=== PATIENT | male | born 1945 | race African-American/Black ===

== ENCOUNTER 2018-01-21 08:47 | Inpatient (IN) ==
[2018-01-21] MEDS ORDERED: SODIUM CHLORIDE 0.9% 500 ML IV STA (09:30)
[2018-01-21 09:43] LABS: ABG Base Excess -1.2 MMOL/L (-2.5-2.5); ABG HCO3 23.4 MMOL/L (20-26); ABG Oxygen Saturation 96.6 % (95-100); ABG PCO2 38.5 MM HG (35-48); ABG PH 7.392 (7.35-7.45); ABG PO2 86.7 MM HG (80-95); ABG TCO2 20.3 MMOL/L (23-27)
[2018-01-21 10:34] LABS: Basophils % 0.5 % (0.0-0.8); Eosinophils # 0.2 10*3/uL (0.0-0.87); Eosinophils % 3.4 % (0.00-10.9); Hematocrit 42.3 VOL% (42.0-52.0); Hemoglobin 13.8 GM/DL (14.0-18.0); Immature Granulocytes % 0.6 %; Immature Granulocytes Absolute 0.04 #; Lymphocytes # 1.9 10*3/uL (1.4-4.0); Lymphocytes % 28.4 % (21.2-54.2); Mean Corpuscular HGB Conc 32.6 GM/DL (32-36); Mean Corpuscular Hemoglobin 32 PG (27-34); Mean Corpuscular Volume 97.5 FL (87-102); Mean Platelet Volume 10.7 FL (9.6-12.0); Monocytes # 0.6 10*3/uL (0.11-0.8); Monocytes % 8.8 % (1.7-12.7); Neutrophils # 3.8 10*3/uL (1.4-7.4); Neutrophils % 58.3 % (38.7-73.9); Platelet Count 150 T/CUMM (130-400); Red Blood Count 4.34 MC/CUMM (3.8-5.5); White Blood Count 6.6 T/CUMM (4-12)
[2018-01-21 10:48] LABS: INR 1.1; PT Patient Result 11.3 SECS
[2018-01-21 10:55] LABS: Ammonia 35 UMOL/L (11-32)
[2018-01-21 10:59] LABS: Alanine Aminotransferase 66 U/L (16-61); Albumin 3.6 G/DL (3.4-5.0); Alkaline Phosphatase 87 U/L (45-117); Aspartate Amino Transferase 21 U/L (0-37); Bilirubin,Total < 0.39 MG/DL (0.2-1.0); Blood Urea Nitrogen 10 MG/DL (7-18); Calcium 8.4 MG/DL (8.5-10.1); Glucose 137 MG/DL (74-106); Potassium 3.8 MMOL/L (3.5-5.1); Sodium 143 MMOL/L (136-145); Total Protein 7.4 G/DL (6.4-8.3)
[2018-01-21 11:15] LABS: Apearance,Urine CLEAR (Clear); Bilirubin,Urine Negative (Negative); Blood, Urine Negative (Negative); Glucose,Urine (UA) Negative (Negative); Ketones,Urine Negative (Negative); Nitrite,Urine Negative (Negative); Protein,Urine Negative; RBC,Urine <1 /HPF (0-4); Urine Color Colorless (Yellow); Urine Specific Gravity 1.002 (1.001-1.035); Urine Urobilinogen < 2.0 EU/DL (0.2-1.0); WBC,Urine <1 /HPF (0-6)
[2018-01-21 11:22] LABS: Barbiturates Screen,Urine Negative (Negative); Benzodiazepines Screen,Urine Negative (Negative); Cannabinoid Screen,Urine Negative (Negative); Opiate Screen,Urine Negative (Negative); Phencyclidine Screen,Urine Negative (Negative)
[2018-01-21] MEDS ORDERED: LORazepam 2 MG/1 ML VIAL IV PRN ×2 (12:28→12:29)
[2018-01-21] MEDS ORDERED: hydrALAZINE 20 MG/1 ML VIAL IV PRN (12:36)
[2018-01-21] MEDS ORDERED: GLUCAGON 1 MG VIAL IM PRN ×2 (12:40)
[2018-01-21] MEDS ORDERED: DEXTROSE 50% 25 GM/50 ML VIAL IV PRN ×2 (12:40)
[2018-01-21] MEDS ORDERED: LACTULOSE 20 GM/30 ML UDCUP PO ONE (13:00)
[2018-01-21] MEDS: SODIUM CHLORIDE 0.45% 1,000 ML IV SCH (14:47)
[2018-01-21] MEDS: sitaGLIPtin 100 MG TABLET PO SCH (14:49)
[2018-01-21] MEDS: ASPIRIN EC 81 MG TABLET PO SCH (14:49)
[2018-01-21] MEDS: amLODIPine 10 MG TABLET PO SCH (14:49)
[2018-01-21] MEDS: BENZTROPINE 2 MG/2 ML AMP IV SCH ×2 (14:50→22:41)
[2018-01-21] MEDS: INSULIN REGULAR 100 UNIT/ML SUBCUT SCH ×2 (16:44→21:16)
[2018-01-21] MEDS: HEPARIN 5,000 UNIT/1 ML VIAL SUBCUT SCH (17:50)
[2018-01-21] MEDS: LOVASTATIN 20 MG TABLET PO SCH (17:50)
[2018-01-21] MEDS ORDERED: NON-FORMULARY MEDICATION (Lovastatin [Lovastatin] 80 MG) PO SCH (21:00)
[2018-01-21] MEDS ORDERED: TOPIRAMATE 100 MG TABLET PO SCH (21:00)
[2018-01-21] MEDS ORDERED: OXcarbazepine 300 MG TABLET PO SCH (21:00)
[2018-01-21] MEDS ORDERED: MONTELUKAST 10 MG TABLET PO SCH (21:00)
[2018-01-21] MEDS ORDERED: FINASTERIDE 5 MG TABLET PO SCH (21:00)
[2018-01-21] MEDS: FINASTERIDE 5 MG TABLET PO SCH (21:15)
[2018-01-21] MEDS: MONTELUKAST 10 MG TABLET PO SCH (21:15)
[2018-01-22] MEDS: HEPARIN 5,000 UNIT/1 ML VIAL SUBCUT SCH ×3 (01:09→17:04)
[2018-01-22 05:32] LABS: Basophils % 0.5 % (0.0-0.8); Eosinophils # 0.2 10*3/uL (0.0-0.87); Eosinophils % 3.9 % (0.00-10.9); Hematocrit 39.6 VOL% (42.0-52.0); Immature Granulocytes % 0.3 %; Immature Granulocytes Absolute 0.02 #; Lymphocytes # 2.4 10*3/uL (1.4-4.0); Lymphocytes % 40.6 % (21.2-54.2); Mean Corpuscular HGB Conc 32.8 GM/DL (32-36); Mean Corpuscular Hemoglobin 31 PG (27-34); Mean Corpuscular Volume 95.4 FL (87-102); Monocytes # 0.7 10*3/uL (0.11-0.8); Monocytes % 11.2 % (1.7-12.7); Neutrophils # 2.6 10*3/uL (1.4-7.4); Neutrophils % 43.5 % (38.7-73.9); Platelet Count 163 T/CUMM (130-400); Red Blood Count 4.15 MC/CUMM (3.8-5.5); Red Cell Distribution Width 14.8 % (9.3-17.3); White Blood Count 5.9 T/CUMM (4-12)
[2018-01-22 05:45] LABS: Albumin 3.2 G/DL (3.4-5.0); Bilirubin,Total 0.6 MG/DL (0.2-1.0); Calcium 8.1 MG/DL (8.5-10.1); Osmolality,Calculated 286.8 MOS/KG (273-304); Potassium 3.6 MMOL/L (3.5-5.1); Total Protein 6.6 G/DL (6.4-8.3)
[2018-01-22] MEDS: LEVOTHYROXINE 25 MCG TABLET PO SCH (05:56)
[2018-01-22] MEDS ORDERED: LEVOTHYROXINE 25 MCG TABLET PO SCH (07:00)
[2018-01-22] MEDS: INSULIN REGULAR 100 UNIT/ML SUBCUT SCH ×4 (07:26→21:37)
[2018-01-22] MEDS ORDERED: [UNRECOGNIZED DRUG - OTHER] PO SCH (09:00)
[2018-01-22] MEDS ORDERED: CALCIUM CARBONATE PO SCH (09:00)
[2018-01-22] MEDS ORDERED: VITAMIN D3 PO SCH (09:00)
[2018-01-22] MEDS ORDERED: amLODIPine 10 MG TABLET PO SCH (09:00)
[2018-01-22] MEDS ORDERED: CETIRIZINE 10 MG TABLET PO SCH (09:00)
[2018-01-22] MEDS ORDERED: sitaGLIPtin 100 MG TABLET PO SCH (09:00)
[2018-01-22] MEDS ORDERED: DOCUSATE SODIUM 100 MG CAPSULE PO SCH (09:00)
[2018-01-22] MEDS ORDERED: [UNRECOGNIZED DRUG - OTHER] PO SCH (09:00)
[2018-01-22] MEDS ORDERED: B COMPLEX WITH VITAMIN C PO SCH (09:00)
[2018-01-22] MEDS ORDERED: ASPIRIN EC 81 MG TABLET PO SCH (09:00)
[2018-01-22] MEDS: sitaGLIPtin 100 MG TABLET PO SCH (09:07)
[2018-01-22] MEDS: MULTIVITAMIN (CENTRUM) TABLET PO SCH (09:07)
[2018-01-22] MEDS: ASPIRIN EC 81 MG TABLET PO SCH (09:08)
[2018-01-22] MEDS: amLODIPine 10 MG TABLET PO SCH (09:08)
[2018-01-22] MEDS: BENZTROPINE 2 MG/2 ML AMP IV SCH (09:09)
[2018-01-22] MEDS: LACTULOSE 20 GM/30 ML UDCUP PO SCH ×3 (09:15→21:37)
[2018-01-22] MEDS: SODIUM CHLORIDE 0.45% 1,000 ML IV SCH (09:22)
[2018-01-22] MEDS: LOVASTATIN 20 MG TABLET PO SCH (17:03)
[2018-01-22] MEDS: glipiZIDE 5 MG TABLET PO SCH (17:03)
[2018-01-22] MEDS: levETIRAcetam 500 MG TABLET PO SCH (21:36)
[2018-01-22] MEDS: MONTELUKAST 10 MG TABLET PO SCH (21:37)
[2018-01-22] MEDS: OXcarbazepine 300 MG TABLET PO SCH (21:37)
[2018-01-22] MEDS: FINASTERIDE 5 MG TABLET PO SCH (21:37)
[2018-01-23] MEDS: HEPARIN 5,000 UNIT/1 ML VIAL SUBCUT SCH ×2 (00:44→09:57)
[2018-01-23] MEDS: LACTULOSE 20 GM/30 ML UDCUP PO SCH ×2 (02:39→09:55)
[2018-01-23] MEDS: SODIUM CHLORIDE 0.45% 1,000 ML IV SCH (02:39)
[2018-01-23 04:50] LABS: Basophils % 0.4 % (0.0-0.8); Eosinophils # 0.3 10*3/uL (0.0-0.87); Eosinophils % 3.4 % (0.00-10.9); Hemoglobin 14.1 GM/DL (14.0-18.0); Immature Granulocytes % 0.5 %; Immature Granulocytes Absolute 0.04 #; Lymphocytes # 2.5 10*3/uL (1.4-4.0); Lymphocytes % 34.6 % (21.2-54.2); Mean Corpuscular HGB Conc 33.6 GM/DL (32-36); Mean Corpuscular Hemoglobin 31 PG (27-34); Mean Corpuscular Volume 92.3 FL (87-102); Monocytes # 0.8 10*3/uL (0.11-0.8); Monocytes % 11.1 % (1.7-12.7); Neutrophils # 3.6 10*3/uL (1.4-7.4); Platelet Count 183 T/CUMM (130-400); Red Blood Count 4.55 MC/CUMM (3.8-5.5); Red Cell Distribution Width 14.6 % (9.3-17.3); White Blood Count 7.3 T/CUMM (4-12)
[2018-01-23 05:22] LABS: Albumin 3.3 G/DL (3.4-5.0); Bilirubin,Total 0.8 MG/DL (0.2-1.0); Calcium 8.1 MG/DL (8.5-10.1); Osmolality,Calculated 282.1 MOS/KG (273-304); Potassium 3.6 MMOL/L (3.5-5.1); Total Protein 7.2 G/DL (6.4-8.3)
[2018-01-23] MEDS: LEVOTHYROXINE 25 MCG TABLET PO SCH (06:15)
[2018-01-23] MEDS: INSULIN REGULAR 100 UNIT/ML SUBCUT SCH ×2 (08:48→11:58)
[2018-01-23] MEDS: amLODIPine 10 MG TABLET PO SCH (09:42)
[2018-01-23] MEDS: ASPIRIN EC 81 MG TABLET PO SCH (09:42)
[2018-01-23] MEDS: glipiZIDE 5 MG TABLET PO SCH (09:42)
[2018-01-23] MEDS: sitaGLIPtin 100 MG TABLET PO SCH (09:42)
[2018-01-23] MEDS: OXcarbazepine 300 MG TABLET PO SCH (09:42)
[2018-01-23] MEDS: levETIRAcetam 500 MG TABLET PO SCH (09:42)
[2018-01-23] MEDS: MULTIVITAMIN (CENTRUM) TABLET PO SCH (09:42)
[2018-01-23 11:42] VITALS: BP 116/78
== END 2018-01-23 12:35 | DRG 92 ==
LOC: EDUNIT# → EDBD → N.ED 08:47 → N.EDINP 12:08 → N.2E 12:39
PROVIDERS: ADMIT Internal Medicine; ATTEND Internal Medicine

== ENCOUNTER 2018-02-03 12:25 | Observation (INO) ==
[2018-02-03 13:31] LABS: Basophils % 0.5 % (0.0-0.8); Eosinophils # 0.1 10*3/uL (0.0-0.87); Eosinophils % 2.1 % (0.00-10.9); Hematocrit 41.5 VOL% (42.0-52.0); Hemoglobin 13.3 GM/DL (14.0-18.0); Immature Granulocytes % 0.2 %; Immature Granulocytes Absolute 0.01 #; Lymphocytes # 1.7 10*3/uL (1.4-4.0); Mean Corpuscular Hemoglobin 31 PG (27-34); Mean Corpuscular Volume 95.8 FL (87-102); Mean Platelet Volume 10.4 FL (9.6-12.0); Monocytes # 0.6 10*3/uL (0.11-0.8); Monocytes % 10.1 % (1.7-12.7); Neutrophils # 3.3 10*3/uL (1.4-7.4); Neutrophils % 58.1 % (38.7-73.9); Platelet Count 177 T/CUMM (130-400); Red Blood Count 4.33 MC/CUMM (3.8-5.5); Red Cell Distribution Width 14.9 % (9.3-17.3); White Blood Count 5.8 T/CUMM (4-12)
[2018-02-03 13:42] LABS: INR 1.1; PT Patient Result 11.6 SECS; Partial Thromboplastin Time 23.6 SECS (0-40)
[2018-02-03 13:57] LABS: Albumin 3.7 G/DL (3.4-5.0); Bilirubin,Total 0.4 MG/DL (0.2-1.0); Calcium 8.4 MG/DL (8.5-10.1); Osmolality,Calculated 282.3 MOS/KG (273-304)
[2018-02-03 15:01] LABS: Apearance,Urine CLEAR (Clear); Bilirubin,Urine Negative (Negative); Blood, Urine Negative (Negative); Glucose,Urine (UA) Negative (Negative); Ketones,Urine Negative (Negative); Mucus,Urine Occasional /LPF (Occasional); Nitrite,Urine Negative (Negative); Protein,Urine 30 MG/DL; RBC,Urine <1 /HPF (0-4); Squamous Epithelial Cell,Urine Occasional /HPF (0-10); Urine Color Yellow (Yellow); Urine Specific Gravity 1.023 (1.001-1.035); WBC,Urine 1 /HPF (0-6)
[2018-02-03] MEDS ORDERED: ONDANSETRON 4 MG/2 ML VIAL IV PRN (15:11)
[2018-02-03] MEDS ORDERED: ACETAMINOPHEN 325 MG TABLET PO PRN (15:11)
[2018-02-03] MEDS ORDERED: ALUMINUM/MAGNES/SIMETH MAX STR 30 ML UDCUP PO PRN (15:14)
[2018-02-03] MEDS ORDERED: DEXTROSE 50% 25 GM/50 ML VIAL IV PRN (15:16)
[2018-02-03] MEDS ORDERED: GLUCAGON 1 MG VIAL IM PRN (15:16)
[2018-02-03] MEDS ORDERED: MAGNESIUM HYDROXIDE SUSP 30 ML UDCUP PO PRN (15:26)
[2018-02-03] MEDS ORDERED: HALOPERIDOL 5 MG/ML AMP IM PRN (15:27)
[2018-02-03] MEDS: INSULIN LISPRO 100 UNIT/ML SUBCUT SCH ×2 (18:07→20:21)
[2018-02-03] MEDS: glipiZIDE 5 MG TABLET PO SCH (18:07)
[2018-02-03] MEDS ORDERED: INFLUENZA VIRUS VACCINE 0.5 ML SYRINGE IM ONE (18:45)
[2018-02-03] MEDS: QUEtiapine 100 MG TABLET PO SCH (20:11)
[2018-02-03] MEDS: OXcarbazepine 300 MG TABLET PO SCH (20:11)
[2018-02-03] MEDS: levETIRAcetam 500 MG TABLET PO SCH (20:11)
[2018-02-03] MEDS: MEMANTINE 10 MG TABLET PO SCH (20:11)
[2018-02-03] MEDS: LACTULOSE 20 GM/30 ML UDCUP PO SCH (20:16)
[2018-02-03] MEDS ORDERED: FINASTERIDE 5 MG TABLET PO SCH (21:00)
[2018-02-03] MEDS ORDERED: LOVASTATIN 20 MG TABLET PO SCH (21:00)
[2018-02-03] MEDS ORDERED: DONEPEZIL 10 MG TABLET PO SCH (21:00)
[2018-02-03] MEDS ORDERED: ENOXAPARIN 40 MG/0.4 ML SYRINGE SUBCUT SCH (21:00)
[2018-02-03] MEDS ORDERED: MONTELUKAST 10 MG TABLET PO SCH (21:00)
[2018-02-04] MEDS ORDERED: LEVOTHYROXINE 25 MCG TABLET PO SCH (07:00)
[2018-02-04 08:09] LABS: Basophils % 0.7 % (0.0-0.8); Eosinophils # 0.1 10*3/uL (0.0-0.87); Hematocrit 43.7 VOL% (42.0-52.0); Immature Granulocytes % 0.2 %; Immature Granulocytes Absolute 0.01 #; Lymphocytes # 2.4 10*3/uL (1.4-4.0); Mean Corpuscular Hemoglobin 31 PG (27-34); Mean Corpuscular Volume 97.3 FL (87-102); Mean Platelet Volume 10.4 FL (9.6-12.0); Monocytes # 0.6 10*3/uL (0.11-0.8); Monocytes % 9.1 % (1.7-12.7); Neutrophils # 2.9 10*3/uL (1.4-7.4); Platelet Count 188 T/CUMM (130-400); Red Blood Count 4.49 MC/CUMM (3.8-5.5); Red Cell Distribution Width 15.1 % (9.3-17.3); White Blood Count 6.1 T/CUMM (4-12)
[2018-02-04 08:30] LABS: Albumin 3.7 G/DL (3.4-5.0); Bilirubin,Total 0.6 MG/DL (0.2-1.0); Calcium 8.9 MG/DL (8.5-10.1); Osmolality,Calculated 283.1 MOS/KG (273-304); Potassium 4.1 MMOL/L (3.5-5.1); Total Protein 7.3 G/DL (6.4-8.3)
[2018-02-04] MEDS: LACTULOSE 20 GM/30 ML UDCUP PO SCH (08:39)
[2018-02-04] MEDS: MEMANTINE 10 MG TABLET PO SCH (08:40)
[2018-02-04] MEDS: QUEtiapine 100 MG TABLET PO SCH (08:40)
[2018-02-04] MEDS: levETIRAcetam 500 MG TABLET PO SCH (08:40)
[2018-02-04] MEDS: OXcarbazepine 300 MG TABLET PO SCH (08:40)
[2018-02-04] MEDS: glipiZIDE 5 MG TABLET PO SCH (08:40)
[2018-02-04] MEDS ORDERED: CALCIUM (CARBONATE)/VITAMIN D 500 MG-200 UNIT TABLET PO SCH (09:00)
[2018-02-04] MEDS ORDERED: DOCUSATE SODIUM 100 MG CAPSULE PO SCH (09:00)
[2018-02-04] MEDS ORDERED: ASPIRIN EC 81 MG TABLET PO SCH (09:00)
[2018-02-04] MEDS ORDERED: CETIRIZINE 10 MG TABLET PO SCH (09:00)
[2018-02-04] MEDS ORDERED: PANTOPRAZOLE 40 MG TABLET PO SCH (09:00)
[2018-02-04] MEDS ORDERED: MULTIVITAMIN (BEROCCA) TABLET PO SCH (09:00)
[2018-02-04] MEDS ORDERED: amLODIPine 10 MG TABLET PO SCH (09:00)
[2018-02-04] MEDS ORDERED: MULTIVITAMIN (CENTRUM) TABLET PO SCH (09:00)
[2018-02-04] MEDS: INSULIN LISPRO 100 UNIT/ML SUBCUT SCH ×2 (10:23→12:50)
[2018-02-04 12:54] VITALS: BP 120/63
== END 2018-02-04 14:43 ==
LOC: EDUNIT# → N.ED 12:25 → N.EDINP 12:25 → SUATTDRO 15:11 → N.4E 16:24
PROVIDERS: ADMIT Internal Medicine; ATTEND Internal Medicine

== ENCOUNTER 2018-05-25 10:49 | Inpatient (IN) ==
[2018-05-25 12:44] LABS: Basophils % 0.5 % (0.0-0.8); Eosinophils # 0.1 10*3/uL (0.0-0.87); Eosinophils % 1.4 % (0.00-10.9); Hemoglobin 15.2 GM/DL (14.0-18.0); Immature Granulocytes % 0.3 %; Immature Granulocytes Absolute 0.02 #; Lymphocytes # 1.9 10*3/uL (1.4-4.0); Lymphocytes % 29.1 % (21.2-54.2); Mean Corpuscular Hemoglobin 31 PG (27-34); Mean Corpuscular Volume 94.7 FL (87-102); Mean Platelet Volume 10.6 FL (9.6-12.0); Monocytes # 0.7 10*3/uL (0.11-0.8); Monocytes % 10.2 % (1.7-12.7); Neutrophils # 3.8 10*3/uL (1.4-7.4); Neutrophils % 58.5 % (38.7-73.9); Platelet Count 173 T/CUMM (130-400); Red Blood Count 4.86 MC/CUMM (3.8-5.5); Red Cell Distribution Width 13.9 % (9.3-17.3); White Blood Count 6.5 T/CUMM (4-12)
[2018-05-25 13:03] LABS: Albumin 3.9 G/DL (3.4-5.0); Bilirubin,Total 0.4 MG/DL (0.2-1.0); Calcium 8.7 MG/DL (8.5-10.1); Osmolality,Calculated 277.7 MOS/KG (273-304); Potassium 3.8 MMOL/L (3.5-5.1); Total Protein 8.1 G/DL (6.4-8.3)
[2018-05-25 13:28] LABS: Apearance,Urine Slightly Hazy (Clear); Bilirubin,Urine Negative (Negative); Blood, Urine Negative (Negative); Glucose,Urine (UA) Negative (Negative); Hyaline Casts,Urine 3 /LPF (0-3); Ketones,Urine Negative (Negative); Mucus,Urine Occasional /LPF (Occasional); Nitrite,Urine Negative (Negative); Protein,Urine Negative; RBC,Urine <1 /HPF (0-4); Urine Color Yellow (Yellow); Urine Specific Gravity 1.023 (1.001-1.035); Urine Urobilinogen < 2.0 EU/DL (0.2-1.0); WBC,Urine 4 /HPF (0-6)
[2018-05-25] MEDS ORDERED: ONDANSETRON 4 MG/2 ML VIAL IV PRN (15:26)
[2018-05-25] MEDS: SODIUM CHLORIDE 0.45% 1,000 ML IV SCH (17:45)
[2018-05-25] MEDS: LACTULOSE 320 GM/480 ML BOTTLE RECTAL SCH (18:15)
[2018-05-25] MEDS: ENOXAPARIN 40 MG/0.4 ML SYRINGE SUBCUT SCH (18:37)
[2018-05-26] MEDS: LACTULOSE 320 GM/480 ML BOTTLE RECTAL SCH ×2 (02:15→10:00)
[2018-05-26] MEDS: SODIUM CHLORIDE 0.45% 1,000 ML IV SCH ×3 (03:05→22:34)
[2018-05-26 06:35] LABS: Basophils # 0.1 10*3/uL (0.0-0.2); Basophils % 0.6 % (0.0-0.8); Eosinophils # 0.2 10*3/uL (0.0-0.87); Hematocrit 43.2 VOL% (42.0-52.0); Hemoglobin 14.1 GM/DL (14.0-18.0); Immature Granulocytes % 0.2 %; Immature Granulocytes Absolute 0.02 #; Lymphocytes # 2.9 10*3/uL (1.4-4.0); Lymphocytes % 33.6 % (21.2-54.2); Mean Corpuscular HGB Conc 32.6 GM/DL (32-36); Mean Corpuscular Hemoglobin 31 PG (27-34); Mean Corpuscular Volume 94.5 FL (87-102); Mean Platelet Volume 10.9 FL (9.6-12.0); Monocytes # 0.8 10*3/uL (0.11-0.8); Monocytes % 9.3 % (1.7-12.7); Neutrophils # 4.7 10*3/uL (1.4-7.4); Neutrophils % 54.3 % (38.7-73.9); Platelet Count 182 T/CUMM (130-400); Red Blood Count 4.57 MC/CUMM (3.8-5.5); Red Cell Distribution Width 14.2 % (9.3-17.3); White Blood Count 8.7 T/CUMM (4-12)
[2018-05-26 07:00] LABS: Albumin 3.6 G/DL (3.4-5.0); Bilirubin,Total 1.2 MG/DL (0.2-1.0); Calcium 8.2 MG/DL (8.5-10.1); Osmolality,Calculated 275.5 MOS/KG (273-304); Total Protein 7.2 G/DL (6.4-8.3)
[2018-05-26] MEDS: LACTULOSE 20 GM/30 ML UDCUP PO SCH (17:38)
[2018-05-26] MEDS: ENOXAPARIN 40 MG/0.4 ML SYRINGE SUBCUT SCH (17:38)
[2018-05-26] MEDS: RIFAXIMIN 550 MG TABLET PO SCH (21:04)
[2018-05-27] MEDS: LACTULOSE 20 GM/30 ML UDCUP PO SCH ×5 (00:02→23:27)
[2018-05-27] MEDS: RIFAXIMIN 550 MG TABLET PO SCH ×2 (08:26→21:01)
[2018-05-27] MEDS: SODIUM CHLORIDE 0.45% 1,000 ML IV SCH ×2 (09:00→19:01)
[2018-05-27] MEDS: ENOXAPARIN 40 MG/0.4 ML SYRINGE SUBCUT SCH (16:32)
[2018-05-28] MEDS: SODIUM CHLORIDE 0.45% 1,000 ML IV SCH ×2 (05:41→18:22)
[2018-05-28] MEDS: LACTULOSE 20 GM/30 ML UDCUP PO SCH ×3 (05:41→18:22)
[2018-05-28] MEDS: RIFAXIMIN 550 MG TABLET PO SCH ×2 (08:16→20:19)
[2018-05-28] MEDS ORDERED: TUBERCULIN SKIN TEST 0.1 ML SYRINGE INTRADERM ONE (13:34)
[2018-05-28] MEDS: ENOXAPARIN 40 MG/0.4 ML SYRINGE SUBCUT SCH (18:22)
[2018-05-29] MEDS: LACTULOSE 20 GM/30 ML UDCUP PO SCH ×4 (00:36→18:31)
[2018-05-29] MEDS: SODIUM CHLORIDE 0.45% 1,000 ML IV SCH ×3 (05:00→21:52)
[2018-05-29] MEDS: RIFAXIMIN 550 MG TABLET PO SCH ×2 (09:01→21:52)
[2018-05-29] MEDS: ENOXAPARIN 40 MG/0.4 ML SYRINGE SUBCUT SCH (18:32)
[2018-05-29 22:15] VITALS: BP 157/73
== END 2018-05-29 23:25 | DRG 71 ==
LOC: EDUNIT# → EDBD → N.EDINP 10:49 → N.ED 10:49 → N.EDINP 17:24 → N.4E 17:49
PROVIDERS: ADMIT Internal Medicine; ATTEND Internal Medicine

== ENCOUNTER 2018-11-02 21:55 | Inpatient (IN) ==
[2018-11-02 20:45] LABS: Basophils % 0.2 % (0.0-0.8); Hemoglobin 15.3 GM/DL (14.0-18.0); Immature Granulocytes % 0.3 %; Immature Granulocytes Absolute 0.03 #; Lymphocytes % 20.7 % (21.2-54.2); Mean Corpuscular HGB Conc 32.6 GM/DL (32-36); Mean Corpuscular Volume 95.5 FL (87-102); Mean Platelet Volume 12.1 FL (9.6-12.0); Monocytes % 9.9 % (1.7-12.7); Neutrophils % 68.9 % (38.7-73.9); Platelet Count 187 T/CUMM (130-400); Red Blood Count 4.92 MC/CUMM (3.8-5.5); Red Cell Distribution Width 14.3 % (9.3-17.3); White Blood Count 9.6 T/CUMM (4-12)
[2018-11-02 21:08] LABS: Albumin 3.6 G/DL (3.4-5.0); Bilirubin,Total 0.9 MG/DL (0.2-1.0); Calcium 8.8 MG/DL (8.5-10.1); Total Protein 7.8 G/DL (6.4-8.3)
[2018-11-02 21:40] LABS: Apearance,Urine CLEAR (Clear); Bilirubin,Urine Negative (Negative); Blood, Urine Negative (Negative); Glucose,Urine (UA) >=500 mg/dL (Negative); Ketones,Urine 20 mg/dL (Negative); Mucus,Urine Occasional /LPF (Occasional); Nitrite,Urine Negative (Negative); Protein,Urine Negative; Squamous Epithelial Cell,Urine Occasional /HPF (0-10); Urine Color Straw (Yellow); Urine Specific Gravity 1.027 (1.001-1.035); Urine Urobilinogen < 2.0 EU/DL (0.2-1.0); WBC,Urine 3 /HPF (0-6)
[~2018-11-02 21:55] MED LIST: INSULIN REGULAR DRIP 100 ML IV PRN; SODIUM CHLORIDE 0.9% 2,000 ML IV STA
[2018-11-02] MEDS ORDERED: MAGNESIUM SULF RIDER 4 GM in PREMIX 1 EACH IV PRN (23:09)
[2018-11-02] MEDS ORDERED: SODIUM BICARB INJ 100 MEQ in STERILE WATER INJ 400 ML IV PRN (23:09)
[2018-11-02] MEDS ORDERED: DEXTROSE 50% 25 GM/50 ML VIAL IV PRN ×2 (23:09)
[2018-11-02] MEDS ORDERED: SODIUM CHLORIDE 0.9% 1,000 ML IV ONE (23:09)
[2018-11-02] MEDS ORDERED: SODIUM PHOSPHATE INJ 21.5 MMOL in SODIUM CHLORIDE 0.9% 250 ML IV PRN (23:09)
[2018-11-02] MEDS ORDERED: INSULIN REGULAR 100 UNIT/ML IV ONE (23:09)
[2018-11-02] MEDS ORDERED: MAGNESIUM SULF RIDER 2 GM in PREMIX 1 EACH IV PRN (23:09)
[2018-11-02] MEDS ORDERED: INSULIN REGULAR DRIP 100 ML IV SCH (23:30)
[2018-11-02 23:38] LABS: ABG Base Excess -3.5 MMOL/L (-2.5-2.5); ABG HCO3 21.6 MMOL/L (20-26); ABG Oxygen Saturation 98.5 % (95-100); ABG PCO2 41.4 MM HG (35-48); ABG PH 7.339 (7.35-7.45); Allen Test Positive
[2018-11-03] MEDS ORDERED: DESITIN 4OZ/NYSTATIN 15 GRAM MIXTURE PASTE TOP PRN (00:10)
[2018-11-03] MEDS ORDERED: INSULIN REGULAR 100 UNIT/ML IV PRN (00:27)
[2018-11-03] MEDS: SODIUM CHLORIDE 0.9% 1,000 ML IV SCH ×2 (00:27→03:20)
[2018-11-03 00:43] LABS: Calcium 8.9 MG/DL (8.5-10.1); Osmolality,Calculated 328.3 MOS/KG (273-304)
[2018-11-03 00:49] LABS: Basophils % 0.2 % (0.0-0.8); Eosinophils % 0.2 % (0.00-10.9); Hematocrit 46.4 VOL% (42.0-52.0); Hemoglobin 14.7 GM/DL (14.0-18.0); Immature Granulocytes % 0.3 %; Immature Granulocytes Absolute 0.03 #; Lymphocytes # 2.4 10*3/uL (1.4-4.0); Lymphocytes % 27.7 % (21.2-54.2); Mean Corpuscular HGB Conc 31.7 GM/DL (32-36); Mean Corpuscular Volume 96.5 FL (87-102); Mean Platelet Volume 11.8 FL (9.6-12.0); Neutrophils % 60.6 % (38.7-73.9); Platelet Count 194 T/CUMM (130-400); Red Blood Count 4.81 MC/CUMM (3.8-5.5); Red Cell Distribution Width 14.4 % (9.3-17.3); White Blood Count 8.6 T/CUMM (4-12)
[2018-11-03] MEDS ORDERED: INSULIN REGULAR 100 UNIT/ML IV ONE ×2 (01:00→03:30)
[2018-11-03 01:23] LABS: ABG Base Excess -2.5 MMOL/L (-2.5-2.5); ABG HCO3 22.4 MMOL/L (20-26); ABG Oxygen Saturation 98.4 % (95-100); ABG PCO2 40.6 MM HG (35-48); ABG PH 7.359 (7.35-7.45); ABG TCO2 19.5 MMOL/L (23-27); Allen Test Positive
[2018-11-03 02:51] LABS: Basophils % 0.5 % (0.0-0.8); Eosinophils % 0.2 % (0.00-10.9); Hematocrit 42.6 VOL% (42.0-52.0); Hemoglobin 13.3 GM/DL (14.0-18.0); Immature Granulocytes % 0.5 %; Immature Granulocytes Absolute 0.04 #; Lymphocytes # 2.3 10*3/uL (1.4-4.0); Mean Corpuscular HGB Conc 31.2 GM/DL (32-36); Mean Corpuscular Volume 96.6 FL (87-102); Mean Platelet Volume 11.7 FL (9.6-12.0); Monocytes % 17.1 % (1.7-12.7); Neutrophils % 55.7 % (38.7-73.9); Platelet Count 177 T/CUMM (130-400); Red Blood Count 4.41 MC/CUMM (3.8-5.5); Red Cell Distribution Width 14.4 % (9.3-17.3); White Blood Count 8.7 T/CUMM (4-12)
[2018-11-03 03:25] LABS: Calcium 8.2 MG/DL (8.5-10.1); Osmolality,Calculated 325.9 MOS/KG (273-304)
[2018-11-03 03:55] LABS: Lymphocytes 25 % (20-55); Segmented Neutrophils 61 % (50-85); Total Cells Counted 100
[2018-11-03 03:56] LABS: Hypochromasia 1+; Platelet Estimate Normal
[2018-11-03] MEDS ORDERED: SODIUM CHLORIDE 0.9% 1,000 ML IV SCH (04:09)
[2018-11-03] MEDS ORDERED: DEXTROSE 5% NACL 0.45% 1,000 ML IV SCH (06:00)
[2018-11-03] MEDS ORDERED: DEXTROSE 50% 25 GM/50 ML VIAL IV PRN (08:34)
[2018-11-03] MEDS ORDERED: GLUCAGON 1 MG VIAL IM PRN (08:34)
[2018-11-03] MEDS: SODIUM CHLORIDE 0.45% 1,000 ML IV SCH ×2 (09:51→18:11)
[2018-11-03] MEDS: INSULIN GLARGINE 100 UNIT/ML SUBCUT SCH (09:52)
[2018-11-03] MEDS: INSULIN REGULAR 100 UNIT/ML SUBCUT SCH ×4 (09:53→21:31)
[2018-11-03] MEDS: POTASSIUM CHLORIDE 20 MEQ TABLET PO SCH ×3 (14:56→23:34)
[2018-11-03] MEDS: OXcarbazepine 300 MG TABLET PO SCH ×2 (14:56→21:18)
[2018-11-03] MEDS: levETIRAcetam 500 MG TABLET PO SCH ×2 (14:57→21:20)
[2018-11-03] MEDS: LACTULOSE 20 GM/30 ML UDCUP PO SCH (17:02)
[2018-11-03] MEDS: RIFAXIMIN 550 MG TABLET PO SCH (21:19)
[2018-11-04] MEDS: SODIUM CHLORIDE 0.45% 1,000 ML IV SCH ×3 (03:00→23:53)
[2018-11-04] MEDS: INSULIN REGULAR 100 UNIT/ML SUBCUT SCH ×6 (03:55→23:30)
[2018-11-04 05:10] LABS: Calcium 7.8 MG/DL (8.5-10.1); Osmolality,Calculated 301.9 MOS/KG (273-304)
[2018-11-04] MEDS: POTASSIUM CHLORIDE RIDER 10 MEQ in PREMIX 1 EACH IV PRN ×3 (05:31→09:16)
[2018-11-04] MEDS: LACTULOSE 20 GM/30 ML UDCUP PO SCH ×2 (07:45→16:16)
[2018-11-04] MEDS ORDERED: POTASSIUM CHLORIDE 20 MEQ TABLET PO ONE (08:11)
[2018-11-04] MEDS: LEVOTHYROXINE 25 MCG TABLET PO SCH (08:50)
[2018-11-04] MEDS: RIFAXIMIN 550 MG TABLET PO SCH ×2 (08:50→20:28)
[2018-11-04] MEDS: INSULIN GLARGINE 100 UNIT/ML SUBCUT SCH (08:50)
[2018-11-04] MEDS: levETIRAcetam 500 MG TABLET PO SCH ×2 (08:50→20:27)
[2018-11-04] MEDS: sitaGLIPtin 100 MG TABLET PO SCH (08:51)
[2018-11-04] MEDS: OXcarbazepine 300 MG TABLET PO SCH ×2 (08:51→20:28)
[2018-11-04] MEDS ORDERED: ALUMINUM/MAGNES/SIMETH MAX STR 30 ML UDCUP PO PRN (14:19)
[2018-11-04] MEDS: glipiZIDE 5 MG TABLET PO SCH (16:16)
[2018-11-04] MEDS: MELATONIN 3 MG TABLET PO SCH (20:27)
[2018-11-04] MEDS: DONEPEZIL 10 MG TABLET PO SCH (20:27)
[2018-11-04] MEDS: MONTELUKAST 10 MG TABLET PO SCH (20:28)
[2018-11-04] MEDS: FINASTERIDE 5 MG TABLET PO SCH (20:28)
[2018-11-04] MEDS: SIMVASTATIN 40 MG TABLET PO SCH (20:28)
[2018-11-04] MEDS: MEMANTINE 10 MG TABLET PO SCH (20:28)
[2018-11-04] MEDS: QUEtiapine 100 MG TABLET PO SCH (20:28)
[2018-11-05] MEDS: INSULIN REGULAR 100 UNIT/ML SUBCUT SCH ×6 (01:53→22:48)
[2018-11-05 05:16] LABS: Calcium 7.5 MG/DL (8.5-10.1); Osmolality,Calculated 293.4 MOS/KG (273-304)
[2018-11-05] MEDS ORDERED: B COMPLEX WITH VITAMIN C PO SCH (09:00)
[2018-11-05] MEDS: INSULIN GLARGINE 100 UNIT/ML SUBCUT SCH (09:01)
[2018-11-05] MEDS: LACTULOSE 20 GM/30 ML UDCUP PO SCH ×2 (09:01→15:51)
[2018-11-05] MEDS: QUEtiapine 100 MG TABLET PO SCH ×2 (09:02→20:25)
[2018-11-05] MEDS: CETIRIZINE 10 MG TABLET PO SCH (09:02)
[2018-11-05] MEDS: glipiZIDE 5 MG TABLET PO SCH ×2 (09:04→15:51)
[2018-11-05] MEDS: MULTIVITAMIN (CENTRUM) TABLET PO SCH (09:04)
[2018-11-05] MEDS: amLODIPine 10 MG TABLET PO SCH (09:04)
[2018-11-05] MEDS: RIFAXIMIN 550 MG TABLET PO SCH ×2 (09:05→20:25)
[2018-11-05] MEDS: ASPIRIN EC 81 MG TABLET PO SCH (09:05)
[2018-11-05] MEDS: MEMANTINE 10 MG TABLET PO SCH ×2 (09:05→20:25)
[2018-11-05] MEDS: levETIRAcetam 500 MG TABLET PO SCH ×2 (09:05→20:24)
[2018-11-05] MEDS: sitaGLIPtin 100 MG TABLET PO SCH (09:05)
[2018-11-05] MEDS: OXcarbazepine 300 MG TABLET PO SCH ×2 (09:05→20:25)
[2018-11-05] MEDS: CALCIUM (CARBONATE)/VITAMIN D 600 MG-400 UNIT TABLET PO SCH (09:05)
[2018-11-05] MEDS: LEVOTHYROXINE 25 MCG TABLET PO SCH (09:06)
[2018-11-05] MEDS: OMEGA 3 ACID ETHYL ESTERS 1 GM CAPSULE PO SCH (09:06)
[2018-11-05] MEDS: DOCUSATE SODIUM 100 MG CAPSULE PO SCH (09:07)
[2018-11-05] MEDS: POTASSIUM CHLORIDE INJ 40 MEQ, SODIUM CHLORIDE 23.4% CONC INJ 38.5 MEQ in STERILE WATER... IV SCH (11:35)
[2018-11-05] MEDS: SODIUM CHLORIDE 0.45% 1,000 ML IV SCH (15:37)
[2018-11-05] MEDS: DONEPEZIL 10 MG TABLET PO SCH (20:24)
[2018-11-05] MEDS: FINASTERIDE 5 MG TABLET PO SCH (20:25)
[2018-11-05] MEDS: MELATONIN 3 MG TABLET PO SCH (20:25)
[2018-11-05] MEDS: MONTELUKAST 10 MG TABLET PO SCH (20:25)
[2018-11-05] MEDS: SIMVASTATIN 40 MG TABLET PO SCH (20:25)
[2018-11-06] MEDS: POTASSIUM CHLORIDE INJ 40 MEQ, SODIUM CHLORIDE 23.4% CONC INJ 38.5 MEQ in STERILE WATER... IV SCH (01:01)
[2018-11-06] MEDS: SODIUM CHLORIDE 0.45% 1,000 ML IV SCH (01:03)
[2018-11-06] MEDS: INSULIN REGULAR 100 UNIT/ML SUBCUT SCH ×5 (02:25→17:58)
[2018-11-06 05:15] LABS: Calcium 7.8 MG/DL (8.5-10.1); Osmolality,Calculated 286.8 MOS/KG (273-304)
[2018-11-06] MEDS: sitaGLIPtin 100 MG TABLET PO SCH (09:16)
[2018-11-06] MEDS: LEVOTHYROXINE 25 MCG TABLET PO SCH (09:16)
[2018-11-06] MEDS: amLODIPine 10 MG TABLET PO SCH (09:18)
[2018-11-06] MEDS: QUEtiapine 100 MG TABLET PO SCH (09:18)
[2018-11-06] MEDS: DOCUSATE SODIUM 100 MG CAPSULE PO SCH (09:18)
[2018-11-06] MEDS: OMEGA 3 ACID ETHYL ESTERS 1 GM CAPSULE PO SCH (09:18)
[2018-11-06] MEDS: MULTIVITAMIN (CENTRUM) TABLET PO SCH (09:18)
[2018-11-06] MEDS: OXcarbazepine 300 MG TABLET PO SCH (09:18)
[2018-11-06] MEDS: CALCIUM (CARBONATE)/VITAMIN D 600 MG-400 UNIT TABLET PO SCH (09:18)
[2018-11-06] MEDS: MEMANTINE 10 MG TABLET PO SCH (09:18)
[2018-11-06] MEDS: glipiZIDE 5 MG TABLET PO SCH ×2 (09:19→17:58)
[2018-11-06] MEDS: RIFAXIMIN 550 MG TABLET PO SCH (09:19)
[2018-11-06] MEDS: CETIRIZINE 10 MG TABLET PO SCH (09:19)
[2018-11-06] MEDS: levETIRAcetam 500 MG TABLET PO SCH (09:19)
[2018-11-06] MEDS: INSULIN GLARGINE 100 UNIT/ML SUBCUT SCH (09:19)
[2018-11-06] MEDS: ASPIRIN EC 81 MG TABLET PO SCH (09:19)
[2018-11-06] MEDS: LACTULOSE 20 GM/30 ML UDCUP PO SCH ×2 (09:19→17:58)
[2018-11-06 15:55] VITALS: BP 117/70
== END 2018-11-06 18:19 | DRG 637 ==
LOC: N.ED 21:55 → N.EDINP 23:09 → SUPCPDRO 23:09 → SUATTDRO 23:09 → N.CC 23:36 → N.4E 11-04 16:37
PROVIDERS: ADMIT Internal Medicine; ATTEND Internal Medicine

== ENCOUNTER 2018-12-09 12:42 | Inpatient (IN) ==
[2018-12-09] MEDS ORDERED: PIPERACILLIN/TAZOBACTAM 3,375 MG in SODIUM CHLORIDE 0.9% 100 ML IV STA (13:09)
[2018-12-09] MEDS ORDERED: ALBUTEROL 2.5 MG/3 ML NEB RESP TX STA (13:39)
[2018-12-09 14:47] LABS: Basophils % 0.4 % (0.0-0.8); Eosinophils # 0.1 10*3/uL (0.0-0.87); Eosinophils % 1.2 % (0.00-10.9); Hematocrit 42.7 VOL% (42.0-52.0); Hemoglobin 13.6 GM/DL (14.0-18.0); Immature Granulocytes % 0.6 %; Immature Granulocytes Absolute 0.06 #; Lymphocytes % 20.4 % (21.2-54.2); Mean Corpuscular HGB Conc 31.9 GM/DL (32-36); Mean Corpuscular Volume 95.5 FL (87-102); Monocytes % 5.9 % (1.7-12.7); Neutrophils % 71.5 % (38.7-73.9); Platelet Count 263 T/CUMM (130-400); Red Blood Count 4.47 MC/CUMM (3.8-5.5); Red Cell Distribution Width 13.9 % (9.3-17.3); White Blood Count 9.9 T/CUMM (4-12)
[2018-12-09 15:09] LABS: Albumin 3.6 G/DL (3.4-5.0); Bilirubin,Total 0.5 MG/DL (0.2-1.0); Calcium 9.2 MG/DL (8.5-10.1); Osmolality,Calculated 286.8 MOS/KG (273-304); Total Protein 7.6 G/DL (6.4-8.3)
[2018-12-09] MEDS ORDERED: ACETAMINOPHEN 325 MG SUPP RECTAL PRN (17:46)
[2018-12-09] MEDS ORDERED: GLUCAGON 1 MG VIAL IM PRN ×2 (17:52)
[2018-12-09] MEDS ORDERED: DEXTROSE 50% 25 GM/50 ML VIAL IV PRN ×2 (17:52)
[2018-12-09] MEDS: SODIUM CHLORIDE 0.45% 1,000 ML IV SCH (18:45)
[2018-12-09] MEDS: INSULIN REGULAR 100 UNIT/ML SUBCUT SCH (18:55)
[2018-12-09] MEDS ORDERED: KETOROLAC 60 MG/2 ML VIAL IM ONE ×2 (19:51)
[2018-12-09] MEDS: LEVOFLOXACIN INJ 750 MG in PREMIX 1 EACH IV SCH (19:53)
[2018-12-09] MEDS ORDERED: ACETAMINOPHEN 325 MG TABLET PO PRN (22:09)
[2018-12-09] MEDS: PIPERACILLIN/TAZOBACTAM 3,375 MG in SODIUM CHLORIDE 0.9% 100 ML IV SCH (22:11)
[2018-12-09] MEDS: HEPARIN 5,000 UNIT/1 ML VIAL SUBCUT SCH (22:16)
[2018-12-10] MEDS: INSULIN REGULAR 100 UNIT/ML SUBCUT SCH ×4 (00:56→17:45)
[2018-12-10 02:55] LABS: Basophils % 0.2 % (0.0-0.8); Eosinophils % 0.1 % (0.00-10.9); Hematocrit 39.4 VOL% (42.0-52.0); Immature Granulocytes % 0.6 %; Immature Granulocytes Absolute 0.07 #; Lymphocytes # 1.6 10*3/uL (1.4-4.0); Lymphocytes % 14.4 % (21.2-54.2); Mean Corpuscular Volume 93.1 FL (87-102); Neutrophils % 77.7 % (38.7-73.9); Platelet Count 247 T/CUMM (130-400); Red Blood Count 4.23 MC/CUMM (3.8-5.5); Red Cell Distribution Width 14.2 % (9.3-17.3); White Blood Count 10.9 T/CUMM (4-12)
[2018-12-10 03:15] LABS: Albumin 3.2 G/DL (3.4-5.0); Bilirubin,Total 1.2 MG/DL (0.2-1.0); Calcium 8.7 MG/DL (8.5-10.1); Osmolality,Calculated 288.8 MOS/KG (273-304)
[2018-12-10] MEDS: PIPERACILLIN/TAZOBACTAM 3,375 MG in SODIUM CHLORIDE 0.9% 100 ML IV SCH ×3 (05:34→22:15)
[2018-12-10] MEDS: HEPARIN 5,000 UNIT/1 ML VIAL SUBCUT SCH ×3 (05:37→22:15)
[2018-12-10] MEDS: LEVOFLOXACIN INJ 750 MG in PREMIX 1 EACH IV SCH (17:48)
[2018-12-10] MEDS: SODIUM CHLORIDE 0.45% 1,000 ML IV SCH (17:48)
[2018-12-10 19:21] LABS: Barbiturates Screen,Urine Negative (Negative); Benzodiazepines Screen,Urine Negative (Negative); Cannabinoid Screen,Urine Negative (Negative); Opiate Screen,Urine Negative (Negative); Phencyclidine Screen,Urine Negative (Negative)
[2018-12-11] MEDS: INSULIN REGULAR 100 UNIT/ML SUBCUT SCH ×3 (00:33→11:33)
[2018-12-11 05:02] LABS: Basophils % 0.3 % (0.0-0.8); Eosinophils # 0.2 10*3/uL (0.0-0.87); Eosinophils % 1.8 % (0.00-10.9); Hematocrit 38.1 VOL% (42.0-52.0); Hemoglobin 11.9 GM/DL (14.0-18.0); Immature Granulocytes % 0.5 %; Immature Granulocytes Absolute 0.05 #; Lymphocytes # 1.9 10*3/uL (1.4-4.0); Lymphocytes % 18.3 % (21.2-54.2); Mean Corpuscular HGB Conc 31.2 GM/DL (32-36); Mean Corpuscular Volume 95.3 FL (87-102); Mean Platelet Volume 10.9 FL (9.6-12.0); Monocytes % 8.5 % (1.7-12.7); Neutrophils % 70.6 % (38.7-73.9); Platelet Count 237 T/CUMM (130-400); Red Cell Distribution Width 14.3 % (9.3-17.3); White Blood Count 10.4 T/CUMM (4-12)
[2018-12-11 05:16] LABS: Albumin 2.9 G/DL (3.4-5.0); Bilirubin,Total 1.2 MG/DL (0.2-1.0); Calcium 8.7 MG/DL (8.5-10.1)
[2018-12-11] MEDS: PIPERACILLIN/TAZOBACTAM 3,375 MG in SODIUM CHLORIDE 0.9% 100 ML IV SCH ×2 (05:29→13:39)
[2018-12-11] MEDS: HEPARIN 5,000 UNIT/1 ML VIAL SUBCUT SCH ×2 (05:30→13:40)
[2018-12-11] MEDS: SODIUM CHLORIDE 0.45% 1,000 ML IV SCH ×2 (05:30→10:41)
[2018-12-11 11:18] VITALS: BP 122/63
== END 2018-12-11 16:30 | DRG 871 ==
LOC: EDUNIT# → EDBD → N.ED 12:42 → N.EDINP 15:50 → N.3E 19:26
PROVIDERS: ADMIT Family Medicine; ATTEND Family Medicine